=== PATIENT | male | born 1950 | race Hispanic/Latino ===

== ENCOUNTER 2019-01-03 11:13 | Day surgery (SDC) | payer MEDICARE ==
[2019-01-03] MEDS ORDERED: NEOFRIN OD ONE (11:40)
[2019-01-03] MEDS ORDERED: IOPIDINE OD ONE (11:40)
[2019-01-03] MEDS ORDERED: MYDRIACYL OD ONE (11:40)
[2019-01-03 12:36] VITALS: BP 142/83
[2019-01-03] MEDS ORDERED: NEOFRIN ONE (14:06)
[2019-01-03] MEDS ORDERED: MYDRIACYL ONE (14:06)
[2019-01-03] MEDS ORDERED: IOPIDINE ONE (14:06)
== END 2019-01-03 12:40 | disposition home or self-care (01) ==
LOC: OR 11:13
PROVIDERS: ATTEND Specialist
DX: H26.491 Other secondary cataract, right eye (principal); I10 Essential (primary) hypertension; Z72.89 Other problems related to lifestyle; Z98.890 Other specified postprocedural states; Z79.899 Other long term (current) drug therapy; Z87.891 Personal history of nicotine dependence; Z98.41 Cataract extraction status, right eye; Z98.42 Cataract extraction status, left eye